=== PATIENT | female | born 1970 | race Caucasian/White ===

== ENCOUNTER 2019-01-26 07:42 | Day surgery (SDC) | payer BC ==
[2019-01-25 10:35] VITALS: BMI 22.9
[~2019-01-26 07:42] MED LIST: LIDOCAINE 1% 20 ML VIAL (10MG/ML) FOR IV START INTRADERMA PRN
[2019-01-26] MEDS: LACTATED RINGERS 1,000 ML IV SCH ×2 (08:12→10:58)
[2019-01-26 08:14] VITALS: RESP 16; TEMP 97.8
[2019-01-26] MEDS ORDERED: GLUCAGON 1 MG/ML VIAL ONE (08:41)
[2019-01-26] MEDS ORDERED: LIDOCAINE 1% INJ 10MG/ML (20 ML MDV) ONE (08:41)
[2019-01-26] MEDS ORDERED: PROPOFOL 10 MG/ML 20 ML VIAL IV ONE (08:41)
--- NOTE | 2019-01-26 08:55 | P.GSHP ---
History of Present Illness H&P Date: 01/26/19 Chief Complaint: Screening colonoscopy This a 48-year-old female who presents today for screening colonoscopy. Patient denies any significant GI complaints. Past Medical History Past Medical History: Osteoarthritis (OA) Additional Past Medical History / Comment(s): THYROID- WATCHING NODULES History of Any Multi-Drug Resistant Organisms: None Reported Past Surgical History: Section Additional Past Surgical History / Comment(s): C SECTIONS X2 Past Anesthesia/Blood Transfusion Reactions: Motion Sickness Smoking Status: Never smoker - Past Family History Mother Family Medical History: Cancer Additional Family Medical History / Comment(s): COLON CANCER Father Family Medical History: Cancer Sister(s) Family Medical History: Cancer Medications and Allergies Home Medications Medication Instructions Recorded Confirmed Type Loratadine [Claritin] 10 mg PO DAILY 01/25/19 01/26/19 History Allergies Allergy/AdvReac Type Severity Reaction Status Date / Time No Known Allergies Allergy Verified 01/26/19 07:59 Surgical - Exam Vital Signs Temp Pulse Resp BP Pulse Ox 97.8 F 91 16 156/91 100 01/26/19 08:08 01/26/19 08:08 01/26/19 08:08 01/26/19 08:08 01/26/19 08:08 - General well developed, well nourished, no distress - Eyes PERRL - ENT normal pinna - Neck no masses, no bruits - Respiratory normal expansion - Cardiovascular Rhythm: regular - Abdomen Abdomen: soft, non tender Assessment and Plan Assessment: We'll perform screening colonoscopy.
--- NOTE | 2019-01-26 09:18 | P.OP ---
Date of Procedure: 01/26/19 Preoperative Diagnosis: Screening colonoscopy Postoperative Diagnosis: Tortuous bowel Procedure(s) Performed: Colonoscopy Anesthesia: MAC Surgeon: Jim Vega Pathology: none sent Condition: stable Disposition: PACU Description of Procedure: The patient's placed on the endoscopy table in the lateral position. She received IV sedation. The digital rectal exam was performed which revealed no abnormalities. Flexible colonoscope was then placed patient anus and passed with colon. Scope passed beyond the splenic flexure secondary to tortuosity valve. Several times made to maneuver the colonoscope was impossible. Scope was withdrawn. Descending and sigmoid colon had a few scattered diverticula. The; very tortuous. Scope summer back the rectum and this appeared normal. Scope was withdrawn for patient..
[2019-01-26] MEDS ORDERED: HYDROmorphone 1 MG/ML 1 ML SYRINGE IVP ONE (09:44)
--- NOTE | 2019-01-26 10:16 | XR ---
EXAMINATION TYPE: XR abdomen 2V DATE OF EXAM: 01/26/2019 CLINICAL HISTORY: Severe pain after colonoscopy. TECHNIQUE: Supine and left side down lateral decubitus views of the abdomen are obtained. COMPARISON: None. FINDINGS: Scattered gas is seen in non-distended small bowel loops. Somewhat prominent gas is seen i n colonic loops which correlates with history of recent attempted colonoscopy. No pneumoperitoneum on left side down lateral decubitus view. Visualized lung bases are clear. Visualized osseous structure s are intact. IMPRESSION: No pneumoperitoneum after colonoscopy.
[2019-01-26 11:00] VITALS: BP 155/91; PULSE 57
[2019-01-26] MEDS ORDERED: ONDANSETRON 4 MG/2 ML VIAL IVP ONE (11:26)
--- NOTE | 2019-01-26 14:08 | FL ---
EXAMINATION TYPE: FL barium enema w air contrast DATE OF EXAM: 01/26/2019 COMPARISON: NONE HISTORY: Incomplete routine colonoscopy. TECHNIQUE: A double contrast barium enema study is performed. Total 1 minute 45 seconds of fluorosco pic time was utilized during procedure. 20 Spot images are saved. FINDINGS: Machine Molder Squeeze view of the abdomen shows overall non-obstructive bowel gas pattern. Successful filling to the cecum. There is redundant transverse colon making evaluation suboptimal due to bowel overlap. There is some reflux into the terminal ileum also making evaluation slightly subop timal. No evidence of any large intraluminal mass or significant large villous polyp, obstructing or constricting lesion throughout the colon. Few diverticula in the sigmoid colon are present.. Appendix was not filled. The terminal ileum was refluxed and appears within normal limits. IMPRESSION: Successful filling to the cecum without obstructing neoplasm.
== END 2019-01-26 12:05 | disposition home or self-care (01) ==
LOC: ORWHC2ENDO 07:42
PROVIDERS: ATTEND Surgery
DX: Z12.11 Encounter for screening for malignant neoplasm of colon (principal); M19.90 Unspecified osteoarthritis, unspecified site; Z80.0 Family history of malignant neoplasm of digestive organs; Z79.899 Other long term (current) drug therapy; K57.30 Diverticulosis of large intestine without perforation or abscess without bleeding
CPT/HCPCS: 81025; 74280; 74019; 45330; J1610; J2405; J2001; J1170; J2704; 45378